=== PATIENT | female | born 1950 | race Caucasian/White ===

== ENCOUNTER 2016-05-06 19:57 | Emergency (ER) | payer MEDICARE, BC ==
[2016-05-06] MEDS ORDERED: IPRATROPIUM/ALBUTEROL (0.5MG/3MG) NEB INH ONE (20:50)
[2016-05-06 21:01] LABS: HEMATOCRIT 43.1 % (35.0-47.0); HEMOGLOBIN 13.7 gm/dl (11.6-16.0); MEAN CELL VOLUME 83.7 fl (81-97); MEAN CORPUSCULAR HEMOGLOBIN 26.6 pg (27-33); MEAN CORPUSCULAR HGB CONC 31.8 g/dl (32-36); MEAN PLATELET VOLUME 10.3 fl (7.4-10.4); PLATELET COUNT 274 K/uL (130-400); RED BLOOD COUNT 5.15 M/uL (3.80-5.40); RED CELL DISTRIBUTION WIDTH 16.5 % (11.5-14.5); WHITE BLOOD COUNT W/O DIFF 6.3 K/uL (4.2-12.2)
[2016-05-06 21:11] LABS: ALB/GLOB RATIO 1.2 (1.1-1.8); ALBUMIN 4.1 gm/dL (3.5-5.0); ALKALINE PHOSPHATASE 182 U/L (38-126); ALT/SGPT 38 U/L (9-52); ANION GAP 15.9 (7-16); AST/SGOT 38 U/L (14-36); BILIRUBIN,TOTAL 0.72 mg/dL (0.2-1.3); BLOOD UREA NITROGEN 19 mg/dL (7-17); CARBON DIOXIDE 16.1 mmol/L (22-30); CREATINE PHOSPHOKINASE 45 U/L (30-135); CREATININE 1.6 mg/dL (0.52-1.04); EST GLOMERULAR FILTRATION RATE 34 ml/min; GLUCOSE,RANDOM 199 mg/dL (70-110); TOTAL PROTEIN 7.4 gm/dL (6.3-8.2)
[2016-05-06 21:23] LABS: CKMB 0.9 ug/L (0-6); TROPONIN I < 0.012 ng/mL (0.00-0.034)
[2016-05-06] MEDS ORDERED: METHYLPREDNISOLONE PF 125MG/VIAL IVP ONE (22:27)
--- NOTE | 2016-05-07 00:33 | Emergency Department Record ---
History of Present Illness - General Chief Complaint: Shortness of breath Stated Complaint: TALIA/HARD TIME WALKING Time Seen by Provider: 05/06/16 20:37 Source: Patient Mode of Arrival: Wheelchair Limitations: No limitations - History of Present Illness Initial Comments: pt c/o not being able to get her breath out. she denies cp or other symptoms MD Complaint: Shortness of breath Onset/Timin -: Days(s) Consistency: Intermittent Worsens With: Exertion - Related Data Home Oxygen Therapy: No Home Medications Medication Instructions Recorded Confirmed Last Taken Alprazolam [Xanax] 1 mg PO TID 11/21/15 11/21/15 Unknown Armodafinil [Nuvigil] 250 mg PO DAILY 11/21/15 11/21/15 Unknown Fentanyl [Duragesic] 75 mcg TD Q72H 11/21/15 11/21/15 Unknown Hydrocodone/Acetaminophen [Vicodin 1 tab PO Q6H PRN 11/21/15 11/21/15 Unknown 5mg/300mg] Metformin HCl 500 mg PO BID 11/21/15 11/21/15 Unknown Mirtazapine [Remeron] 30 mg PO DAILY 11/21/15 11/21/15 Unknown Venlafaxine HCl [Effexor Xr] 150 mg PO DAILY 11/21/15 11/21/15 Unknown Zolpidem Tartrate [Ambien Cr] 12.5 mg PO QHS 11/21/15 11/21/15 Unknown Allergies Allergy/AdvReac Type Severity Reaction Status Date / Time No Known Drug Allergies Allergy Verified 11/21/15 20:19 Travel Screening - Travel/Exposure Within Last 30 Days Have you traveled within the last 30 days?: No - Travel Symptoms Symptom Screening: None Review of Systems Reviewed: No additional complaints except as noted below Constitutional: Reports: As per HPI. Denies: Chills, Fever, Malaise, Night sweats, Weakness, Weight change Eyes: Reports: As per HPI. Denies: Eye discharge, Eye pain, Photophobia, Vision change ENT: Reports: As per HPI. Denies: Congestion, Dental pain, Ear pain, Epistaxis , Hearing loss, Throat pain Respiratory: Reports: As per HPI. Denies: Cough, Dyspnea, Hemoptysis, Stridor, Wheezes Cardiovascular: Reports: As per HPI. Denies: Arrhythmia, Chest pain, Dyspnea on exertion, Edema, Murmurs, Orthopnea, Palpitations, Paroxysmal nocturnal dyspnea, Rheumatic Fever, Syncope Endocrine: Reports: As per HPI. Denies: Fatigue, Heat or cold intolerance, Polydipsia, Polyuria Gastrointestinal: Reports: As per HPI. Denies: Abdominal pain, Constipation, Diarrhea, Hematemesis, Hematochezia, Melena, Nausea, Vomiting Genitourinary: Reports: As per HPI. Denies: Abnormal menses, Discharge, Dyspareunia, Dysuria, Frequency, Hematuria, Incontinence, Retention, Urgency Musculoskeletal: Reports: As per HPI. Denies: Arthralgia, Back pain, Gout, Joint swelling, Myalgia, Neck pain Skin: Reports: As per HPI. Denies: Bruising, Change in color, Change in hair/ nails, Lesions, Pruritus, Rash Neurological: Reports: As per HPI. Denies: Abnormal gait, Confusion, Headache, Numbness, Paresthesias, Seizure, Tingling, Tremors, Vertigo, Weakness Psychiatric: Reports: As per HPI. Denies: Anxiety, Auditory hallucinations, Depression, Homicidal thoughts, Suicidal thoughts, Visual hallucinations Hematological/Lymphatic: Reports: As per HPI. 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 - PSYCH Hx Psych Problems: Yes Hx Anxiety: Yes Hx Depression: Yes - HEMATOLOGY/ONCOLOGY Hx Hematology/Oncology Disorders: No Family Medical History Any Significant Family History?: Yes Family Hx Comment (NOT TO BE USED IN PLACE OF ITEMS BELOW): Sister w/Lupus Hx Cancer: Father, Brother/Sister *Cancer Comment: Prostate Physical Exam - General General Appearance: Alert, Oriented x3, Cooperative, Mild distress - Head Head exam: Normal inspection - Eye Eye exam: Normal appearance, PERRL, EOMI Pupils: Normal accommodation - ENT ENT exam: Normal exam, Mucous membranes moist, Normal external ear exam, Normal orophraynx Ear exam: Normal external inspection. negative: External canal tenderness Nasal Exam: Normal inspection. negative: Discharge, Sinus tenderness Mouth exam: Normal external inspection, Tongue normal Teeth exam: Normal inspection. negative: Dental caries Throat exam: Normal inspection. negative: Tonsillar erythema, Tonsillar exudate - Neck Neck exam: Normal inspection, Full ROM. negative: Tenderness - Respiratory Respiratory exam: Normal lung sounds bilaterally. negative: Respiratory distress - Cardiovascular Cardiovascular Exam: Regular rate, Normal rhythm, Normal heart sounds - GI/Abdominal GI/Abdominal exam: Soft, Normal bowel sounds. negative: Tenderness - Rectal Rectal exam: Deferred - exam: Deferred - Extremities Extremities exam: Normal inspection, Full ROM, Normal capillary refill. negative: Tenderness - Back Back exam: Reports: Normal inspection, Full ROM. Denies: Muscle spasm, Rash noted, Tenderness - Neurological Neurological exam: Alert, CN II-XII intact, Normal gait, Oriented X3, Reflexes normal - Psychiatric Psychiatric exam: Normal affect, Normal mood - Skin Skin exam: Dry, Intact, Normal color, Warm Course Vital Signs 05/06/16 05/06/16 05/06/16 20:08 21:09 21:11 Temperature 98.0 F Pulse Rate 72 Pulse Rate [ 70 Recruiting Coordinator ] Pulse Rate [ 86 Pulse Ox Probe] Respiratory 16 16 16 Rate Blood Pressure [Left Arm] Blood Pressure 152/92 143/81 [Right Arm] Pulse Ox 97 96 05/06/16 05/06/16 22:21 23:07 Temperature Pulse Rate Pulse Rate [ 78 76 Recruiting Coordinator ] Pulse Rate [ Pulse Ox Probe] Respiratory 16 24 Rate Blood Pressure 129/99 [Left Arm] Blood Pressure 183/104 [Right Arm] Pulse Ox 95 96 - Reevaluation(s) Reevaluation #1: 05/07/16 01:07 pt feels better Medical Decision Making - Lab Data Result diagrams: 05/06/16 20:22 05/06/16 20:22 Lab Results 05/06/16 05/06/16 05/06/16 Range/Units 20:22 20:22 20:22 WBC 6.3 (4.2-12.2) K/uL RBC 5.15 (3.80-5.40) M/uL Hgb 13.7 (11.6-16.0) gm/dl Hct 43.1 (35.0-47.0) % MCV 83.7 (81-97) fl MCH 26.6 L (27-33) pg MCHC 31.8 L (32-36) g/dl RDW 16.5 H (11.5-14.5) % Plt Count 274 (130-400) K/uL MPV 10.3 (7.4-10.4) fl Neutrophils % 74.0 (47-80) % Band Neutrophils % 2.0 (0-5) % Lymphocytes % 14.0 L (16-45) % Monocytes % 8.0 (0-9) % Eosinophils % 2.0 (0-6) % Basophils % 0.0 (0-6) % D-Dimer 0.39 (0-0.59) mg/L FEU Sodium (136-145) mmol/L Potassium (3.5-5.1) mmol/L Chloride (98-107) mmol/L Carbon Dioxide (22-30) mmol/L Anion Gap (7-16) BUN (7-17) mg/dL Creatinine (0.52-1.04) mg/dL Estimated GFR ml/min POC Glucose 174 H (70-110) mg/dL Random Glucose (70-110) mg/dL Calcium (8.5-10.1) mg/dL Total Bilirubin (0.2-1.3) mg/dL AST (14-36) U/L ALT (9-52) U/L Alkaline Phosphatase (38-126) U/L Creatine Kinase (30-135) U/L CK-MB (CK-2) (0-6) ug/L Troponin I (0.00-0.034) ng/mL NT-Pro-B Natriuret Pep (<125) pg/mL Total Protein (6.3-8.2) gm/dL Albumin (3.5-5.0) gm/dL Globulin (1.4-4.8) gm/dL Albumin/Globulin Ratio (1.1-1.8) // Range/Units 20:22 WBC (4.2-12.2) K/uL RBC (3.80-5.40) M/uL Hgb (11.6-16.0) gm/dl Hct (35.0-47.0) % MCV (81-97) fl MCH (27-33) pg MCHC (32-36) g/dl RDW (11.5-14.5) % Plt Count (130-400) K/uL MPV (7.4-10.4) fl Neutrophils % (47-80) % Band Neutrophils % (0-5) % Lymphocytes % (16-45) % Monocytes % (0-9) % Eosinophils % (0-6) % Basophils % (0-6) % D-Dimer (0-0.59) mg/L FEU Sodium 137 (136-145) mmol/L Potassium 4.0 (3.5-5.1) mmol/L Chloride 105 (98-107) mmol/L Carbon Dioxide 16.1 L (22-30) mmol/L Anion Gap 15.9 (7-16) BUN 19 H (7-17) mg/dL Creatinine 1.6 H (0.52-1.04) mg/dL Estimated GFR 34 ml/min POC Glucose (70-110) mg/dL Random Glucose 199 H (70-110) mg/dL Calcium 9.1 (8.5-10.1) mg/dL Total Bilirubin 0.72 (0.2-1.3) mg/dL AST 38 H (14-36) U/L ALT 38 (9-52) U/L Alkaline Phosphatase 182 H (38-126) U/L Creatine Kinase 45 (30-135) U/L CK-MB (CK-2) 0.9 (0-6) ug/L Troponin I < 0.012 (0.00-0.034) ng/mL NT-Pro-B Natriuret Pep 1430.00 H (<125) pg/mL Total Protein 7.4 (6.3-8.2) gm/dL Albumin 4.1 (3.5-5.0) gm/dL Globulin 3.3 (1.4-4.8) gm/dL Albumin/Globulin Ratio 1.2 (1.1-1.8) Disposition Disposition: Discharge Clinical Impression: Shortness of Breath Disposition: Home, Self-Care Condition: (1) Good Instructions: Dyspnea (ED) Additional Instructions: follow up with family doctor. return sooner if worse
[2016-05-07 00:56] LABS: URINE APPEARANCE CLEAR; URINE BILIRUBIN NEGATIVE (NEGATIVE); URINE BLOOD NEGATIVE (NEGATIVE); URINE COLOR YELLOW; URINE GLUCOSE (UA) NEGATIVE (NEGATIVE); URINE KETONE NEGATIVE (NEGATIVE); URINE LEUKOCYTE ESTERASE NEGATIVE (NEGATIVE); URINE NITRITE NEGATIVE (NEGATIVE); URINE UROBILINOGEN 0.2 E.U./dL (0.20 - 1.00)
[2016-05-07 00:57] LABS: URINE PROTEIN 300 mg/dL (NEGATIVE)
--- NOTE | 2016-05-13 07:54 | RADIOLOGY REPORT ---
EXAM: CHEST, TWO VIEWS HISTORY: SHORTNESS OF BREATH. TECHNIQUE: PA and lateral views of the chest were obtained. Comparison: [facility] chest dated 12/15/08. FINDINGS: The heart size is within normal limits. Mild torsion of the aorta. Minor linear fibrosis or discoid atelectasis left mid lung. Prominent spurring in the spine. No pleural effusion or pneumothorax evident. Thoracic curve to the right. IMPRESSION: 1. MILD LINEAR FIBROSIS OR DISCOID ATELECTASIS LEFT MID LUNG LATERALLY. 2. THORACIC CURVE TO THE RIGHT WITH PROMINENT SPURRING IN THE SPINE. JOB NUMBER: [id number] MTDD
== END 2016-05-07 01:42 | disposition home or self-care (01) ==
LOC: ER 19:57
DX: R06.02 Shortness of breath (principal); I12.9 Hypertensive chronic kidney disease with stage 1 through stage 4 chronic kidney disease, or unspecified chronic kidney disease; N18.9 Chronic kidney disease, unspecified; F17.210 Nicotine dependence, cigarettes, uncomplicated; E11.9 Type 2 diabetes mellitus without complications; Z79.84 Long term (current) use of oral hypoglycemic drugs
CPT/HCPCS: 36416; 71020; 80053; 81003; 82550; 82553; 82948; 83880; 84484; 85027; 85379; 93005; 93010; 94640; 96374; 99284; J2930